=== PATIENT | female | born 1990 | race Caucasian/White ===

== ENCOUNTER → 2024-10-23 14:18 | Outpatient (REF) | payer OTHER, SELFPAY | LOC: HWRAD 14:18 | PROVIDERS: ATTENDING PHYSICIAN Obstetrics & Gynecology; FAMILY PHYSICIAN Nurse Practitioner Family | DX: Z32.01 Encounter for pregnancy test, result positive (principal) | CPT/HCPCS: 76801 ==

== ENCOUNTER → 2024-11-09 09:49 | Outpatient (REF) | payer OTHER, SELFPAY | LOC: PNTC 09:49 | PROVIDERS: ATTENDING PHYSICIAN Obstetrics & Gynecology | DX: O46.90 Antepartum hemorrhage, unspecified, unspecified trimester (principal); O41.8X99 Other specified disorders of amniotic fluid and membranes, unspecified trimester, other fetus | CPT/HCPCS: 76801 ==

== ENCOUNTER → 2024-11-28 10:28 | Outpatient (REF) | payer OTHER, SELFPAY | LOC: PNTC 10:28 | PROVIDERS: ATTENDING PHYSICIAN Obstetrics & Gynecology | DX: O46.90 Antepartum hemorrhage, unspecified, unspecified trimester (principal) | CPT/HCPCS: 76801; 76813 ==

== ENCOUNTER → 2025-01-09 13:33 | Outpatient (REF) | payer OTHER, SELFPAY | LOC: PNTC 13:33 | PROVIDERS: ATTENDING PHYSICIAN Obstetrics & Gynecology | DX: O20.8 Other hemorrhage in early pregnancy (principal); O35.8XX0 Maternal care for other (suspected) fetal abnormality and damage, not applicable or unspecified | CPT/HCPCS: 76811; 76817 ==

== ENCOUNTER → 2025-02-13 11:55 | Outpatient (REF) | payer OTHER, SELFPAY | LOC: PNTC 11:55 | PROVIDERS: ATTENDING PHYSICIAN Obstetrics & Gynecology | DX: O26.839 Pregnancy related renal disease, unspecified trimester (principal) | CPT/HCPCS: 76816 ==

== ENCOUNTER → 2025-03-13 11:01 | Outpatient (REF) | payer OTHER, SELFPAY | LOC: PNTC 11:01 | PROVIDERS: ATTENDING PHYSICIAN Obstetrics & Gynecology | DX: O35.8XX0 Maternal care for other (suspected) fetal abnormality and damage, not applicable or unspecified (principal) | CPT/HCPCS: 76816 ==

== ENCOUNTER → 2025-03-20 14:01 | Outpatient (REF) | payer OTHER, SELFPAY ==
--- NOTE | 2025-03-16 11:38 | PN.DIAED06 ---
Meal Plan - Gestational
- Breakfast
Gestational Diabetes Meal Plan Name: 2000 calories
Breakfast - Total Carbohydrate (grams): 45 (1 carb serving is 15 grams)
Breakfast - Starch Carbohydrate: 2 (carbs: starch, milk, fruit/juice)
Breakfast - Fruit Carbohydrate: 0 (no fruit or juice before noon)
Breakfast - Milk Carbohydrate: 1
Breakfast - Nonstarchy Vegetables: Yes
Breakfast - Meat/Protein: 1 (1 serving = 1 oz = 7 g)
Breakfast - Fat: 2 (1 serving = 5 g)
- Morning Snack
Morning Snack - Total Carbohydrate (grams): 30
Morning Snack - Starch Carbohydrate: 1
Morning Snack - Fruit Carbohydrate: 0 (no fruit or juice before noon)
Morning Snack - Milk Carbohydrate: 1
Morning Snack - Nonstarchy Vegetables: Yes
Morning Snack - Meat/Protein: 0
Morning Snack - Fat: 0
- Lunch
Lunch - Total Carbohydrate (grams): 45
Lunch - Starch Carbohydrate: 1
Lunch - Fruit Carbohydrate: 1
Lunch - Milk Carbohydrate: 1
Lunch - Nonstarchy Vegetables: Yes
Lunch - Meat/Protein: 2
Lunch - Fat: 2
- Afternoon Snack
Afternoon Snack - Total Carbohydrate (grams): 30
Afternoon Snack - Starch Carbohydrate: 1
Afternoon Snack - Fruit Carbohydrate: 1
Afternoon Snack - Milk Carbohydrate: 0
Afternoon Snack - Nonstarchy Vegetables: Yes
Afternoon Snack - Meat/Protein: 1
Afternoon Snack - Fat: 0
- Dinner
Dinner - Total Carbohydrate (grams): 45
Dinner - Starch Carbohydrate: 2
Dinner - Fruit Carbohydrate: 1
Dinner - Milk Carbohydrate: 0
Dinner - Nonstarchy Vegetables: Yes
Dinner - Meat/Protein: 2
Dinner - Fat: 2
- Evening Snack
Evening Snack - Total Carbohydrate (grams): 45
Evening Snack - Starch Carbohydrate: 1
Evening Snack - Fruit Carbohydrate: 1
Evening Snack - Milk Carbohydrate: 1
Evening Snack - Nonstarchy Vegetables: Yes
Evening Snack - Meat/Protein: 1
Evening Snack - Fat: 0
--- NOTE | 2025-03-20 15:29 | PN.DE ---
Diabetes Education
- -
03/20/2025 GESTATIONAL DIABETES CONSULT
Met with Hazel and her mother today for medical nutrition therapy. She is with an SARINA of 05/29/2025.
Explained glucose metabolism in body and what occurs during to cause increase blood sugar. Discussed importance of keeping BS well controlled to avoid complications to the baby during and after (macrosomia, hypoglycemia). Explained
to Hazel that she is at increased risk of developing T2DM in the future.
Discussed macronutrients, provided with 2000 brie GDM meal plan. Educated on importance of eating 3 meals and 3 snacks, spread out throughout the day with proper proportion of carbs, proteins, and fats. She is anemic, takes iron and does not eat a
lot of protein. She has been attempting to add more meat based protein to her diet. She states that certain foods cause nausea, and is still trying to figure out what agrees with her. I provided an ADA list of high iron meat and plant based source
foods. Discussed physical activity recommendations of 30 minutes per day, she has not been exercising but is active with taking care of a 4 year old son. Encouraged walking, especially after meals to help lower post prandial glucose. She also
mentioned she has not gained weight so far in her , and even lost a few pounds since changing her diet to reduce carbohydrates. I explained she still need carbohydrates, and to discuss weight gain with her OBGYN.
She brought in a glucometer ordered from [email or web address]. I provided Contour glucose meter as this is a preferred brand through insurance. She has the prescription available for test strips and lancets at [facility]. Educated and demonstration on proper blood
sugar testing technique, testing sites and testing pattern. She is aware to test FBS and 2 hr pp each meal. Expected results for FBS <95 mg/dL and 2 hr pp <120 mg/dL. Noted for non fasting blood sugar of 87 mg/dL 2 hours postprandial lunch. She has
been recording glucose numbers: fasting 79, 88, 97, 104, 113, 118; postprandial 70-114 mg/dL. States her fasting glucose #'s were high when she was experimenting with different foods to determine what spikes her glucose.
Log sheet provided for her to record results, she will send a 4-day meal log with all her FBG and 2hr Post prandial glucose numbers to this office for review. In addition, she will send all her glucose readings to [facility] every Wednesday.
She verbalized understanding, and was encouraged to reach out should she require insulin.
== END ==
LOC: DES 14:01
PROVIDERS: ATTENDING PHYSICIAN Obstetrics & Gynecology
DX: O24.419 Gestational diabetes mellitus in pregnancy, unspecified control (principal)
CPT/HCPCS: 99078

== ENCOUNTER → 2025-04-10 11:03 | Outpatient (REF) | payer OTHER, SELFPAY | LOC: PNTC 11:03 | PROVIDERS: ATTENDING PHYSICIAN Obstetrics & Gynecology | DX: Q62.0 Congenital hydronephrosis (principal) | CPT/HCPCS: 76816 ==

== ENCOUNTER → 2025-05-08 11:01 | Outpatient (REF) | payer OTHER, SELFPAY | LOC: PNTC 11:01 | PROVIDERS: ATTENDING PHYSICIAN Obstetrics & Gynecology | DX: O35.8XX0 Maternal care for other (suspected) fetal abnormality and damage, not applicable or unspecified (principal) | CPT/HCPCS: 76816 ==

== ENCOUNTER 2025-05-29 19:49 | Inpatient (IN) | payer OTHER, SELFPAY ==
[2025-05-29 20:07] VITALS: BMI 28.4
[2025-05-29 20:15] LABS: Glucose - Point of Care 86 mg/dl (70-99)
[2025-05-29 20:42] LABS: Hematocrit 33.1 % (37.0-47.0); Hemoglobin 11.5 g/dL (12.0-16.0); Mean Corp Hgb Conc. 34.7 g/dL (33.0-37.0); Mean Corpuscular Volume 87.3 fL (81.0-99.0); Nucleated Red Blood Cells % 0 %; Platelet Count 193 10^3/uL (130-400); Red Cell Dist. Width 14.4 % (11.5-14.5)
[2025-05-29] MEDS: CYTOTEC 25 MICROGRAM VAG (20:45)
[2025-05-29 21:09] VITALS: BP 110/74
[2025-05-29] MEDS: LR 1000 IV (23:05)
[2025-05-30 00:24] LABS: Glucose - Point of Care 94 mg/dl (70-99)
[2025-05-30] MEDS: LR 1000 IV (03:25)
[2025-05-30 03:27] LABS: Glucose - Point of Care 87 mg/dl (70-99)
[2025-05-30] MEDS: PITOCIN 30 UNITS/NSS 500 ML IV (04:22)
[2025-05-30] MEDS: XYLOCAINE-MPF 1% VIAL 30 ML INFIL (04:30)
[2025-05-30] MEDS: TRANEXAMIC ACID 100 IV (04:39)
[2025-05-30] MEDS: FEOSOL 325 MG PO (07:17)
[2025-05-30] MEDS: COLACE 100 MG PO ×2 (07:17→19:57)
[2025-05-30] MEDS: PRENATAL PLUS 1 TABLET PO (07:17)
[2025-05-30] MEDS: TYLENOL 650 MG PO ×3 (07:56→20:32)
[2025-05-30] MEDS: MOTRIN 600 MG PO ×3 (07:56→20:32)
[2025-05-31] MEDS: MOTRIN 600 MG PO ×2 (04:59→19:52)
[2025-05-31 07:42] LABS: Hematocrit 32.5 % (37.0-47.0); Hemoglobin 10.8 g/dL (12.0-16.0)
[2025-05-31] MEDS: COLACE 100 MG PO ×2 (07:52→19:53)
[2025-06-01] MEDS: COLACE 100 MG PO (10:16)
[2025-06-01] MEDS: FEOSOL 325 MG PO (10:16)
[2025-06-01] MEDS: PRENATAL PLUS 1 TABLET PO (10:16)
[2025-06-01 15:47] LABS: Syphilis/T. pallidum Ab Reflex Negative (Negative)
== END 2025-06-01 10:45 | disposition home or self-care (01) | DRG 807 ==
LOC: LDRP 19:49
PROVIDERS: ADMITTING PHYSICIAN Obstetrics & Gynecology
PROC: 3E033VJ Introduction of Other Hormone into Peripheral Vein, Percutaneous Approach (ICD-10-PCS; 2025-05-29)
PROC: 3E0P7VZ Introduction of Hormone into Female Reproductive, Via Natural or Artificial Opening (ICD-10-PCS; 2025-05-29)
PROC: 0HQ9XZZ Repair Perineum Skin, External Approach (ICD-10-PCS; 2025-05-30)
PROC: 10E0XZZ Delivery of Products of Conception, External Approach (ICD-10-PCS; 2025-05-30)
DX: O24.429 Gestational diabetes mellitus in childbirth, unspecified control (principal); Z37.0 Single live birth; Z3A.40 40 weeks gestation of pregnancy; O69.81X0 Labor and delivery complicated by cord around neck, without compression, not applicable or unspecified; O70.0 First degree perineal laceration during delivery
CPT/HCPCS: 36415; 82962; 85014; 85018; 85025; 86780; 86850; 86900; 86901